=== PATIENT | male | born 1990 | race Caucasian/White ===

== ENCOUNTER 2016-06-23 00:35 | Emergency (ER) | payer OTHER ==
[~2016-06-23] VITALS: Ht 175.3 cm; Wt 79.5 kg
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
[2016-06-23 00:42] VITALS: BP 128/78; PULSE 94; RESP 19; O2SAT 97
[2016-06-23 00:58] LABS: BASOPHILS % (AUTO) 0.1 % (0-3); EOSINOPHILS % (AUTO) 0.1 % (0-5); MONOCYTES % (AUTO) 11.1 % (4-12); Mean Corpuscular Hemoglobin 28.1 pg (27.0-35.0); Mean Corpuscular Volume 83.7 fL (81-100); Platelet Count 492 bil/L (150-400)
[2016-06-23 01:29] LABS: Lipase 26 U/L (13-60)
[2016-06-23 01:43] VITALS: PULSE 89; RESP 20; O2SAT 98
[2016-06-23 04:25] VITALS: PULSE 90; RESP 19; O2SAT 96
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
[2016-06-23] MEDS ORDERED: Sodium Chloride LOK Flush 10 mL Syringe IVFLUSH SCH (08:30)
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
[2016-06-23 08:53] VITALS: BP 126/60; PULSE 95; RESP 21; O2SAT 95
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
[2016-06-23 15:06] VITALS: BP 124/78; PULSE 92; RESP 16; O2SAT 96
== END 2016-06-23 15:00 | disposition home or self-care (01) ==
LOC: SED 00:35 → EDBD 00:35 → SED 15:00
DX: S01.01XA Laceration without foreign body of scalp, initial encounter (principal); S60.211A Contusion of right wrist, initial encounter; Y04.8XXA Assault by other bodily force, initial encounter; Y92.410 Unspecified street and highway as the place of occurrence of the external cause; Y93.89 Activity, other specified; Y99.8 Other external cause status; F15.10 Other stimulant abuse, uncomplicated
CPT/HCPCS: 12013; 29125; 70450; 71260; 72125; 73090; 73110; 74177; 80053; 81002; 83690; 85025; 99285; Q9967